=== PATIENT | male | born 1985 | race African-American/Black ===

== ENCOUNTER 2025-02-13 12:45 | Emergency (ER) | payer MEDICAID ==
[~2025-02-13] VITALS: Ht 190.5 cm; Wt 102.7 kg
[2025-02-13 12:49] VITALS: BP 150/98; PULSE 106; TEMP 98.4; O2SAT 100
[2025-02-13 12:52] VITALS: RESP 18
== END 2025-02-13 13:51 | disposition home or self-care (01) ==
LOC: ER 12:46
DX: R19.5 Other fecal abnormalities (principal)
CPT/HCPCS: 99281

== ENCOUNTER 2025-05-29 21:45 | Emergency (ER) | payer MEDICAID ==
[~2025-05-29] VITALS: Ht 190.5 cm; Wt 112.3 kg
[~2025-05-29 21:45] MED LIST: CYCL-394 PO; NAPR-56 PO
--- NOTE | 2025-05-29 22:13 | Physician Documentation ---
History of Present Illness ~ Chief Complaint: Back Pain Stated Complaint: BACK PAIN Time Seen by MD: 22:11 OK to notify your PCP?: Yes Primary Medical Doctor: NONE Source: patient, RN/MD, RN notes reviewed, old records Mode of Arrival: POV Exam Limitations: no limitations HPI BED 17 This patient is a 39 y/o male who presents to ED with chief complaint of back pain. Patient reports that this pain has been ongoing but tolerable the past week. He states that just yesterday it became significantly worse after some heavy lifting at work. Patient was seen here yesterday and received Toradol. He was also given a prescription of Naproxen and Flexoril at home which he states had been helping until just about one hour ago, when his pain significantly worsened again. Patient notes that the pain in his back is radiating down to his sides, worse on the right. Denies any bowel or bladder incontinence. Patient denies any other associated symptoms at this time. Patient denies any other alleviating or exacerbating factors. Medication Reconciliation Allergies: Coded Allergies: No Known Allergies (Unverified , 05/29/25) Scheduled Cyclobenzaprine HCl (Cyclobenzaprine HCl), 1 TAB PO HS Cyclobenzaprine HCl (Cyclobenzaprine HCl), 1 TAB PO Q8H Dexamethasone* (Decadron*), 1 TAB PO DAILY Naproxen (Naproxen), 1 TAB PO Q12H Scheduled PRN Tramadol Hcl (Tramadol Hcl), 1 TAB PO Q12H PRN PRN for pain Discontinued Medications Naproxen (Naproxen), 1 TAB PO Q12H Discontinued Reason: Prescription changed Past Medical History Past Medical History: No Pertinent History Past Surgical History: noncontributory Smoking Status: Unknown if ever smoked Alcohol Use: None Drug Use: none Review of Systems All Other Systems at this time: Reviewed and Negative Musculoskeletal: Reports: back pain Physical Exam Physical Exam Vital Signs: RN Vital Signs have been reviewed: Yes, Temperature: 98.6, Source: Oral, Heart Rate: 102, Respiratory Rate: 16, BP: 146/89, Pulse Oximetry: 98, Weight: 112.270 Oxygen Flow Rate: 0 Pulse Oximetry Reflects: adequate oxygenation Physical Exam General: Moderate distress secondary to pain. Patient moaning in pain. The patient is well developed, well nourished, nontoxic appearing. Skin: Normal inspection, warm and dry with no rashes. HEENT: Head was normocephalic and atraumatic. Eyes - pupils equal, round, bienvenido ctive to light and accommodation. Extraocular movements were intact. Conjunctivae were nonicteric. The mouth and oropharynx were clear with moist mucous membranes. There were no pharyngeal exudates or erythema. Neck: Supple and nontender. There was no jugular venous distention, lymphadenopathy, thyromegaly or masses. Chest: Clear to auscultation bilaterally without wheezes, rales or rhonchi. No accessory muscle use. No dullness to percussion. Heart: Rate regular and rhythmic. S1, S2. No murmurs. Palpation of the chest wall was normal. No rubs or thrills. Abdomen: Soft, nontender and nondistended. Positive bowel sounds. No guarding or rebound. No hepatosplenomegaly or palpable masses. Extremities: No cyanosis, clubbing or edema. The patient moves all extremities. Pulses were equal and symmetric. Back: Patient with bilateral lower lumbar spasms. Straight leg tests positive biletarally. Neurologic: Motor and sensation grossly intact. A & O x4. Psychologic: The patient was oriented to person, place and time. Progress Results/Orders Reviewed/noted all lab results: Yes Results/Orders Orders - BEVERLY WICK MD Ct Lumbar Spine (05/29/25 22:44) Completed Orders - BEVERLY WICK MD Ct Lumbar Spine (05/29/25 22:44) Hydromorphone 1 Mg/Ml/Pf (Dilaudid Inj.) (05/29/25 22:20) Triamcinolone Acet 40mg/Ml Inj (Kenalog- (05/29/25 22:20) Dexamethasone Tablet (Decadron Tablet) (05/29/25 22:20) Tramadol Tablet (Ultram Tablet) (05/30/25 00:45) Medications Received in ER Medications (Trade) Dose Ordered Sig/Alicia Route PRN Reason Start Time Stop Time Status Last Admin Dose Admin (Ultram tablet) 100 mg ONCE ONCE PO 05/30/25 00:45 05/30/25 00:50 DC 05/30/25 00:59 100 MG Vital Signs 05/29/25 05/29/25 05/30/25 21:51 23:26 01:17 Temp 98.6 98.6 Pulse 102 86 89 Resp 16 18 B/P (MAP) 146/89 128/80 Pulse Ox 98 96 97 O2 Flow Rate 0 Re-Evaluation Re-Evaluation : Re-Evaluation: Improved Progress Patient was seen and examined. Patient was given reassurance. Patient returned to the ER for worsening back pain. He is moaning in severe pain from his back spasms. He is having difficulty breathing because the pain is so severe. For that reason a workup was started. Patient had a CAT scan that showed some degenerative disease but no significant disc disease or obvious abnormality. Patient was treated aggressively he was given tramadol dexamethasone as well as multiple doses of Dilaudid. Over time he was feeling better he has medications from the day prior so no additional muscle relaxants were written. A steroid taper was written to help with inflammation. There was no neurological symptoms such as bowel or bladder incontinence. This extreme pain. Patient improved and was discharged home. EKG/XRAY/CT/US/VASC/MRI CT : Interpreted By: radiologist CT: L-spine With Contrast?: No Impression [address] [address] CAT SCAN Patient: ARDEN LUND Medical Record: [id number] 1985, Age: 39 Sex: Male Location: ER Patient Status: [facility] ER Service Date/Time: 05/29/252243 Ordering Physician: BEVERLY WICK MD Exam: CT LUMBAR SPINE EXAM: CT CT LUMBAR SPINE HISTORY: Lumbar spasm and pain COMPARISON: None CTDIvol mGy, DLP mGy*cm. TECHNIQUE: Multiple axial CT images of the spine were obtained using bone algorithm. Axial and coronal reformatting was done. Bone and soft tissue windows were reviewed. FINDINGS: No CT evidence of definite acute fracture, spinal dislocation, or significant appearing acute subluxation is seen. The visualized paraspinal soft tissues are grossly unremarkable. Moderate multilevel broad-based diffuse disc osteophyte complexes exhibit [id number] bilateral neural foraminal narrowing and mild narrowing of the central canal at the L3-L4 through L5-S1 levels. Moderate multilevel bilateral facet hypertrophy. IMPRESSION: 1. No definite CT evidence of acute fracture or dislocation of the bony lumbar spine. 2. Multilevel degenerative change of the lumbar spine. Electronically Signed by:STUART CISNEROS MD Date & Time: 05/29/252350 Dictated by: STUART CISNEROS MD Dictation date and time: 05/29/252350 Primary Care Provider: NO PRIMARY CARE PROVIDER cc: BEVERLY WICK MD ~ EDMD DR. WICK REVIEWED IMAGING AND AGREES WITH FINDINGS ABOVE. Medical Decision Making Additional info obtained from: old records Differential Dx:Considerations: Include: DJD, Fracture, Musculoskeletal pain, Strain, Other Departure Time of Disposition: 00:46 Disposition: 01 HOME / SELF CARE / HOMELESS Impression: Primary Impression: Back pain Qualified Codes: M54.50 - Low back pain, unspecified Additional Impression: Muscle spasm Condition: Stable Discharge Instructions: Acute Back Pain, Adult Additional Instructions: Take medications as prescribed. Follow up with your doctor as soon as possible. Referrals: NO PRIMARY CARE PROVIDER (PCP) Prescriptions Dexamethasone* (Decadron*) 4 Mg Tablet 1 TAB PO DAILY for 7 Days, #7 TAB Prov: BEVERLY WICK MD 05/30/25 Tramadol Hcl (Tramadol Hcl) 50 Mg Tablet 1 TAB PO Q12H PRN PRN for pain for 30 Days, #60 TAB Prov: BEVERLY WICK MD 05/30/25 Education Educated: Patient Educated regarding: diagnosis, treatment, need for follow up Signature Scribe Signature: Scribed for Beverly Wick MD by Candi Car 05/29/25 22:32 Attestation: The note accurately reflects work and decisions made by me.Beverly Wick MD 05/29/25 22:13 BEVERLY WICK MD May 29, 2025 22:13
[2025-05-29] MEDS: triamcinolone acetonide 40mg/ml inj IM ONE (22:34)
--- NOTE | 2025-05-29 23:54 | RADIOLOGY REPORT ---
EXAM: CT CT LUMBAR SPINE HISTORY: Lumbar spasm and pain COMPARISON: None CTDIvol mGy, DLP mGy*cm. TECHNIQUE: Multiple axial CT images of the spine were obtained using bone algorithm. Axial and coron al reformatting was done. Bone and soft tissue windows were reviewed. FINDINGS: No CT evidence of definite acute fracture, spinal dislocation, or significant appearing acute subluxa tion is seen. The visualized paraspinal soft tissues are grossly unremarkable. Moderate multilevel broad-based diffuse disc osteophyte complexes exhibit [id number] bilateral neural foraminal narrowing and mild narrowing of the central canal at the L3-L4 through L5-S1 levels. Moderate multilevel bilateral facet hypertrophy. IMPRESSION: 1. No definite CT evidence of acute fracture or dislocation of the bony lumbar spine. 2. Multilevel degenerative change of the lumbar spine.
[2025-05-30] MEDS ORDERED: TRAM50TA2 PO (00:45)
[2025-05-30] MEDS ORDERED: DEC4T PO (00:45)
[2025-05-30 01:17] VITALS: BP 128/80; PULSE 89; RESP 18; TEMP 98.6; O2SAT 97
== END 2025-05-30 01:18 | disposition home or self-care (01) ==
LOC: ER 21:46
DX: M62.838 Other muscle spasm (principal)
CPT/HCPCS: 72131; 96372; 99285; J1171

== ENCOUNTER 2025-07-02 16:15 | Emergency (ER) | payer MEDICAID ==
[~2025-07-02] VITALS: Ht 190.5 cm; Wt 113.0 kg
--- NOTE | 2025-07-02 17:16 | Physician Documentation ---
History of Present Illness ~ Chief Complaint: Cold, cough & congestion Stated Complaint: NOT FEELING WELL Time Seen by MD: 18:49 Primary Medical Doctor: NONE HPI This is a 39-year-old male who presents with approximately one month of nasal and chest congestion, one-week of right shoulder pain radiating down right arm, and one day of cough and body aches. Patient reports no fever. Patient reports he has a primary care appointment in two days. Medication Reconciliation Allergies: Coded Allergies: No Known Allergies (Unverified , 05/29/25) Scheduled Cyclobenzaprine HCl (Cyclobenzaprine HCl), 1 TAB PO HS Cyclobenzaprine HCl (Cyclobenzaprine HCl), 1 TAB PO Q8H Guaifenesin (Guaifenesin), 1 TAB PO Q8H Lidocaine (Lidoderm), 1 PATCH TOP DAILY Loratadine (Claritin), 1 CAP PO DAILY Naproxen (Naproxen), 1 TAB PO Q12H Discontinued Medications Tramadol Hcl (Tramadol Hcl), 1 TAB PO Q12H PRN PRN for pain Discontinued Reason: Auto Discontinued Past Medical History Past Medical History: No Pertinent History Past Surgical History: noncontributory Alcohol Use: None Drug Use: none Review of Systems ROS As stated above in the HPI, otherwise all systems are reviewed and negative. Physical Exam Vital Signs: Temperature: 98.9, Source: Oral, Heart Rate: 126, Respiratory Rate: 16, BP: 169/94, Pulse Oximetry: 98, Weight: 113.000 Oxygen Flow Rate: 0 Physical Exam VITALS: Reviewed and as above. GENERAL: Alert, nontoxic appearing, no apparent distress. RESPIRATORY: No increased work of breathing, no respiratory distress, speaking in full clear sentences, clear lung sounds in all duffy CV: Regular rate and rhythm no murmur MUSCULOSKELETAL: Right posterior shoulder and trapezius tender to palpation, palpable trapezius muscle spasm, range of motion intact in right arm with pain elicited with active ROM NEURO: Sensation intact to right arm hand and fingers, brisk capillary refill in right fingers Progress Results/Orders Results/Orders Orders - AIMEE MOREL MANAGER COMMUNICATION Chest,Two Views (07/02/25 17:43) Shoulder, Complete (Min 2 Vws) (07/02/25 17:43) Completed Orders - AIMEE MOREL MANAGER COMMUNICATION Chest,Two Views (07/02/25 17:43) Shoulder, Complete (Min 2 Vws) (07/02/25 17:43) Ketorolac Trometh 15mg/Ml Vial (Toradol (07/02/25 19:05) Lidocaine 5% Patch (Lidoderm 5% Patch) (07/02/25 19:05) Vital Signs 07/02/25 07/02/25 07/02/25 16:20 18:07 19:23 Temp 98.9 98.6 Pulse 126 120 115 Resp 16 22 20 B/P (MAP) 169/94 170/111 (130) 166/101 Pulse Ox 98 98 99 O2 Flow Rate 0 0 EKG/XRAY/CT/US/VASC/MRI Chest X-Ray : Additional Comments Exam: CHEST,TWO VIEWS DI CHEST,TWO VIEWS CLINICAL HISTORY: Cough/Chest Congestion COMPARISON: None TECHNIQUE: Frontal and lateral view of the chest was obtained FINDINGS: Lines and Tubes: None Lungs: No focal consolidation. Pleura: No effusion. No pneumothorax. Cardiomediastinal contours: Unremarkable Bones: No acute osseous abnormality. IMPRESSION: No acute cardiopulmonary disease. Electronically Signed by:KEELEY ROMAN DO Date & Time: 07/02/25 175 Dictated by: KEELEY ROMAN DO Dictation date and time: 07/02/25 173 I have reviewed and agree with the radiology report. I have reviewed and interpreted the imaging as: No focal consolidation or pneumothorax Bone/Soft Tissue X-Ray (Ext.) : Additional Comment Exam: SHOULDER, COMPLETE (MIN 2 VWS) CLINICAL INDICATION: Shoulder Pain RIGHT TECHNIQUE: 3 radiographic views of the right shoulder were obtained. Comparison: None FINDINGS/IMPRESSION: There is no evidence of acute fracture or dislocation. Bony spur from the greater tuberosity The visualized joint space is well maintained. The alignment is anatomical. There is no radiopaque foreign body. Electronically Signed by:KEELEY ROMAN DO Date & Time: 07/02/251808 Dictated by: KEELEY ROMAN DO Dictation date and time: 07/02/25 180 I have reviewed and agree with the radiology report. I have reviewed and interpreted the imaging as: No fracture or dislocation Medical Decision Making Findings This is a 39-year-old male presented with a proximally one month of chest raul estion with a cough and body aches developing one day prior, physical exam was benign with clear lung sounds in all duffy and x-ray of chest did not demonstrate evidence of focal consolidation to suggest pneumonia. Additionally reassuring patient reported no fever or chest pain. Chest congestion may be related to allergies given accompanying nasal congestion and the one-month co urse without other significant illness, new cough may represent early URI symptoms though patient's physical exam findings were reassuring. Patient had additional concern for one-week of right shoulder pain which an x-ray was obtained demonstrating no evidence of fracture or dislocation, while there was some pain to the shoulder range of motion was intact and the arm was neurovasc ularly intact. Patient was medicated for pain and discharged to follow up with primary care. Patient provided home care instructions return to care precautions, and follow up instructions which he verbalized understanding of. Differential Dx:Considerations: Include: Allergic rhinitis, Influenza, Otitis media, Pneumonia, Pnuemonitis, Sinusitis, URI, Other (Fracture of arm, shoulder dislocation, musculoskeletal pain, muscle spasm, cervical radiculopathy) Departure Time of Disposition: 18:58 Disposition: HOME / SELF CARE / HOMELESS Impression: Primary Impression: Cough Qualified Codes: R05.1 - Acute cough Additional Impression: Shoulder pain Qualified Codes: M25.511 - Pain in right shoulder Condition: Improved Discharge Instructions: Cough, Adult Additional Instructions: Your cough symptoms may be related to allergies, suggest using the medications prescribed which are also available [id number]. Stay well hydrated. You may use the Lidoderm patches as needed for muscle pain, you may also use ibuprofen starting tomorrow for your shoulder pain, you may add Tylenol to the ibuprofen for breakthrough pain. Take all medications as directed by pnna-ohk-fzewqex packaging. Please follow up with your primary care provider in the next few days. Please return to the emergency department for any new or worsening concerning symptoms. Referrals: NO PRIMARY CARE PROVIDER (PCP) Prescriptions Lidocaine (Lidoderm) 5 % Adh..patch 1 PATCH TOP DAILY for 10 Days, #10 PATCH 0 Refills may wear up to 12 hours Prov: AIMEE MORELP 07/02/25 Guaifenesin (Guaifenesin) 200 Mg Tablet 1 TAB PO Q8H for 10 Days, #20 TAB 0 Refills Prov: AIMEE MOREL 07/02/25 Loratadine (Claritin) 10 Mg Capsule 1 CAP PO DAILY for allergy symptoms for 30 Days, #30 CAP 0 Refills Prov: AIMEE MOREL 07/02/25 Education Educated: Patient Educated regarding: diagnosis, treatment, prognosis, need for follow up Signature Scribe Signature: No scribe Attestation: The note accurately reflects work and decisions made by me.JON Ward 07/04/25 14:42 AIMEE MOREL Jul 02, 2025 17:16
--- NOTE | 2025-07-02 17:53 | RADIOLOGY REPORT ---
DI CHEST,TWO VIEWS CLINICAL HISTORY: Cough/Chest Congestion COMPARISON: None TECHNIQUE: Frontal and lateral view of the chest was obtained FINDINGS: Lines and Tubes: None Lungs: No focal consolidation. Pleura: No effusion. No pneumothorax. Cardiomediastinal contours: Unremarkable Bones: No acute osseous abnormality. IMPRESSION: No acute cardiopulmonary disease.
--- NOTE | 2025-07-02 18:11 | RADIOLOGY REPORT ---
CLINICAL INDICATION: Shoulder Pain RIGHT TECHNIQUE: 3 radiographic views of the right shoulder were obtained. Comparison: None FINDINGS/IMPRESSION: There is no evidence of acute fracture or dislocation. Bony spur from the greater tuberosity The visualized joint space is well maintained. The alignment is anatomical. There is no radiopaque foreign body.
[2025-07-02] MEDS ORDERED: LIDO-52 TOP (19:00)
[2025-07-02] MEDS ORDERED: GUAI200T5 PO (19:00)
[2025-07-02] MEDS ORDERED: LORA10CA PO (19:00)
[2025-07-02] MEDS: ketorolac trometh 15mg/ml vial 15 MG/ML ML IM ONE (19:09)
[2025-07-02 19:23] VITALS: BP 166/101; PULSE 115; RESP 20; TEMP 98.6; O2SAT 99
== END 2025-07-02 19:24 | disposition home or self-care (01) ==
LOC: ER 16:15
DX: R05.9 Cough, unspecified (principal); M25.511 Pain in right shoulder; Z79.899 Other long term (current) drug therapy
CPT/HCPCS: 71046; 73030; 96372; 99284; J1885